=== PATIENT | female | born 1940 | race Caucasian/White ===

== ENCOUNTER 2017-05-14 12:37 | Outpatient (CLI) | payer MEDICARE | END 2017-05-14 12:38 | disposition home or self-care (01) | LOC: BICRAD 12:37 | PROVIDERS: ATTEND Allergy & Immunology | DX: Z03.89 Encounter for observation for other suspected diseases and conditions ruled out (principal) | CPT/HCPCS: 71046 ==

== ENCOUNTER 2017-07-03 13:23 | Outpatient (CLI) | payer MEDICARE | END 2017-07-03 13:24 | disposition home or self-care (01) | LOC: BICMAMMO 13:23 | PROVIDERS: ATTEND Family Medicine | DX: Z13.820 Encounter for screening for osteoporosis (principal); M85.859 Other specified disorders of bone density and structure, unspecified thigh; Z78.0 Asymptomatic menopausal state | CPT/HCPCS: 77080 ==

== ENCOUNTER 2017-08-30 07:23 | Outpatient (CLI) | payer MEDICARE ==
--- NOTE | 2017-08-30 08:59 | CT ---
CT ABDOMEN AND PELVIS: Date: 08/30/17 COMPARISON: None. HISTORY: Left lower quadrant pain. TECHNIQUE: Serial axial CT imaging obtained at 5 mm intervals from lung bases through pubic symphysis without co ntrast. Coronal reformatted imaging obtained. FINDINGS: The lack of contrast media limits assessment of the viscera, bowel vasculature structures, and for ly mphadenopathy. Incomplete segment of stent material overlies the region of the aortic valve. There is prominent mitral annulus calcification. Imaged lung bases are unremarkable. No free intraperitoneal air or fluid. The liver, spleen, pancreas, and adrenal glands are grossly unremarkable. Cholecystectomy clips are p resent. Kidneys are unremarkable. Prominent fat-containing umbilical hernia noted measuring 5.4 cm in greates t dimension. There is extensive diverticulosis involving the descending and sigmoid colon. There is a focal area o f mild pericolonic fat stranding and colonic wall thickening at the junction of the sigmoid colon and the descending colon. There are similar findings involving the distal aspect of the descending colon . Findings are most consistent with diverticulitis. No extraluminal gas or evidence of abscess seen. There is no evidence for bowel obstruction. Appendix is grossly unremarkable. Limited noncontrast enhanced assessment of the vasculature demonstrates significant scattered atheros clerotic calcification of the abdominal aorta and its branches. There is a small hiatal hernia. There is significant multilevel degenerative changes seen within the imaged spine. IMPRESSION: Findings suggesting distal descending colonic and sigmoid colonic diverticulitis. No evidence for abs cess or perforation. Recommend direct visualization of the colon via colonoscopy when the acute sympt oms have resolved. POS: [facility]
== END 2017-08-30 07:24 | disposition home or self-care (01) ==
LOC: SCSCT 07:23
PROVIDERS: ATTEND Family Medicine
DX: R10.32 Left lower quadrant pain (principal)
CPT/HCPCS: 74176; 82565

== ENCOUNTER 2017-12-19 13:38 | Outpatient (CLI) | payer MEDICARE ==
--- NOTE | 2017-12-19 14:46 | MRI ---
MRI LUMBAR SPINE: Date: 12/19/17 Multiplanar, multisequential imaging of lumbar spine obtained without contrast; INDICATION: Low back pain. Lumbar disc degeneration. FINDINGS: Slight wedging of the L1 vertebra. Degenerative osteophytes are seen anteriorly at L1, L2, L3, and L4 . Slight posterolisthesis at L1-2. Degenerative disc changes with loss of disc space at T12-L1, L1-2, and L2-3. At T12-L1, mild disc bulge flattens the thecal sac. Facet hypertrophy. However, no significant centra l canal stenosis. At L1-2, there is a broad based disc bulge/protrusion flattening the thecal sac. Facet and ligamentou s hypertrophy at posterior epidural fat compresses the thecal sac resulting in moderate central canal stenosis. Bilateral foraminal narrowing secondary to diffuse disc and facet hypertrophy. At L2-3, mild diffuse disc bulge. Facet hypertrophy and posterior epidural fat results in mild centra l canal stenosis. Mild bilateral foraminal encroachment. At L3-4, mild disc bulge. Mild to moderate facet hypertrophy. Mild central canal stenosis. At L4-5, mild diffuse disc bulge. Asymmetric bulge/protrusion to the left extending into the left for roxanne. Facet and ligamentous hypertrophy is prominent. There is severe central canal stenosis at this level. Left foraminal encroachment, although the exiting left L4 nerve root does not appear displace d. L5 is transitional. No significant disc bulge or protrusion at L5-S1 and thecal sac is congenitally s mall at this level. Small nerve root sleeve cysts are seen at S1. IMPRESSION: 1. L5 is transitional. 2. Severe central canal stenosis at L4-5 with a broad based bulge and asymmetric protrusion to the l eft at this level. 3. Moderate central canal stenosis at L1-2 as described. Mild central canal stenosis at L2-3 and L3- 4 as described. 4. Mild anterior wedging at the L1 vertebra does not appear acute. There is no evidence of vertebral body edema. 5. There is a cystic lesion to the right at S1 inferior to L5-S1 disc measuring approximately 1.0 cm . Nerve root sleeve cyst is favored; however, I cannot exclude a synovial cyst from the adjacent face t. POS: [facility]
== END 2017-12-19 13:39 | disposition home or self-care (01) ==
LOC: TBSIIMAG 13:38
PROVIDERS: ATTEND Neurological Surgery
DX: M51.36 Other intervertebral disc degeneration, lumbar region (principal); M48.061 Spinal stenosis, lumbar region without neurogenic claudication; M51.26 Other intervertebral disc displacement, lumbar region
CPT/HCPCS: 72148

== ENCOUNTER 2018-04-07 09:55 | Outpatient (CLI) | payer MEDICARE ==
[2018-04-07 12:18] LABS: Hemoglobin 12.4 g/dL (12.0-16.0); Mean Corpuscular HGB CONC 33.9 g/dL (32.0-36.0); Mean Corpuscular Hemoglobin 29.6 pg (27.0-31.0); Mean Corpuscular Volume 87.4 fL (78.0-98.0); Mean Platelet Volume 8.4 fL (7.4-10.4); Platelet Count 208 thou/uL (130-400); RBC Distribution Width 12.2 % (11.5-14.5)
[2018-04-07 12:23] LABS: Anion Gap 14 mmol/L (10-20); BUN (Urea Nitrogen) 34 mg/dL (9.8-20.1); Calc. Creatinine Clearance 0 mL/min (70-130); Calcium 9.9 mg/dL (7.8-10.44); Carbon Dioxide 23 mmol/L (23-31); Chloride 110 mmol/L (98-107); Estimated GFR-MDRD 41; Glucose 93 mg/dL (83-110); Potassium 5.1 mmol/L (3.5-5.1); Sodium 142 mmol/L (136-145)
--- NOTE | 2018-04-07 19:27 | EKG ---
Test Reason : Blood Pressure : / mmHG Vent. Rate : 064 BPM Atrial Rate : 064 BPM P-R Int : 142 ms QRS Dur : 076 ms QT Int : 390 ms P-R-T Axes : 077 020 066 degrees QTc Int : 402 ms Normal sinus rhythm Normal ECG When compared with ECG of 02-MAR-2016 14:16, Confirmed by DR. Peggy PARK MD (4) on 04/07/2018 7:27:21 PM Referred By: REJI Confirmed By:DR. Peggy PARK MD
== END 2018-04-07 09:56 | disposition home or self-care (01) ==
LOC: LABBT 09:55
PROVIDERS: ATTEND Neurological Surgery
DX: Z01.818 Encounter for other preprocedural examination (principal); M51.36 Other intervertebral disc degeneration, lumbar region
CPT/HCPCS: 80048; 85027; 93005; 93010

== ENCOUNTER 2018-04-10 05:43 | Observation (INO) | payer MEDICARE ==
[2018-04-10] MEDS ORDERED: CEFAZOLIN 2 GM/50 ML BAG ONE ×2 (06:09→14:10)
[2018-04-10] MEDS ORDERED: Albuterol Sulfate HFA (OR ONLY) ONE (07:21)
[2018-04-10] MEDS ORDERED: Phenylephrine HCL 10 MG/ML VIAL ONE (07:22)
[2018-04-10] MEDS ORDERED: Fentanyl 100 MCG/2 ML VIAL ONE ×4 (07:28→11:26)
[2018-04-10] MEDS ORDERED: Lidocaine 1% PF 5 ML VIAL ONE (11:26)
[2018-04-10] MEDS ORDERED: Ondansetron PF 4 MG/2 ML Vial ONE ×2 (11:26→12:33)
[2018-04-10] MEDS ORDERED: ePHEDrine/0.9% NaCl/PF SYRINGE 50 mg/10 ml ONE (11:26)
[2018-04-10] MEDS ORDERED: PROPOFOL 200 MG/20 ML VIAL ONE (11:26)
[2018-04-10] MEDS ORDERED: PHENYLEPHRINE-NS 100 MCG/ML 10 ML SYRINGE ONE (11:26)
[2018-04-10] MEDS ORDERED: Glycopyrrolate 0.2 MG/ML 5 ML SYRINGE ONE (11:26)
[2018-04-10] MEDS ORDERED: Dexamethasone 20 MG/5 ML VIAL ONE (11:26)
[2018-04-10] MEDS ORDERED: Mag-Al 1200 mg/1200 mg/30 ML UDCUP PO PRN (15:52)
[2018-04-10] MEDS ORDERED: diphenhydrAMINE 50 MG/ML VIAL IVP PRN (15:52)
[2018-04-10] MEDS ORDERED: HYDROcodone/Acetaminophen 10/325 mg Tablet PO PRN ×2 (15:52)
[2018-04-10] MEDS ORDERED: Morphine 4 MG/ML VIAL SLOW IVP PRN (15:52)
[2018-04-10] MEDS ORDERED: Milk Of Magnesia 30 ML UDCUP PO PRN (15:52)
[2018-04-10] MEDS ORDERED: diphenhydrAMINE 25 MG CAP PO PRN (15:52)
[2018-04-10] MEDS ORDERED: Ondansetron PF 4 MG/2 ML Vial IM PRN (15:52)
[2018-04-10] MEDS ORDERED: Promethazine HCl 12.5 MG SUPP PR PRN (15:52)
[2018-04-10] MEDS ORDERED: Promethazine HCl 25 MG/ML VIAL IM PRN (15:52)
[2018-04-10] MEDS ORDERED: tiZANidine HCl 4 MG TAB PO PRN (15:52)
[2018-04-10] MEDS ORDERED: Promethazine 25 MG TAB PO PRN (15:52)
[2018-04-10 16:08] VITALS: BMI 31.3
[2018-04-10] MEDS: Sodium Chloride 0.9% 1,000 ML IV SCH (16:50)
[2018-04-10] MEDS ORDERED: Gabapentin 100 MG CAP PO PRN (20:26)
[2018-04-10] MEDS ORDERED: Lisinopril/Hydrochlorothiazide 20 mg/12.5 mg Tablet PO SCH (21:00)
[2018-04-10] MEDS ORDERED: Lisinopril 10 MG TAB PO SCH (21:00)
[2018-04-10] MEDS ORDERED: Non-Formulary Item 1 EACH (Budesonide/Formoterol Fumarate [Symbicort 160-4.5 Mcg Inhaler] IN SCH (21:00)
[2018-04-10] MEDS: CEFAZOLIN 2 GM/50 ML BAG IVPB SCH (21:53)
[2018-04-11] MEDS ORDERED: Dextrose 5% in Water 1,000 ML IV PRN (05:05)
[2018-04-11] MEDS ORDERED: HumaLOG 300 UNITS/3 ML VIAL SC PRN (05:05)
[2018-04-11] MEDS ORDERED: Dextrose 50% Abboject 50 ML SYRINGE SLOW IVP PRN (05:05)
[2018-04-11] MEDS ORDERED: Levothyroxine Sodium 50 MCG TAB PO SCH (06:00)
[2018-04-11 06:13] LABS: Anion Gap 10 mmol/L (10-20); BUN (Urea Nitrogen) 30 mg/dL (9.8-20.1); Calc. Creatinine Clearance 52 mL/min (70-130); Calcium 9.1 mg/dL (7.8-10.44); Carbon Dioxide 26 mmol/L (23-31); Chloride 108 mmol/L (98-107); Estimated GFR-MDRD 40; Glucose 127 mg/dL (83-110); Potassium 4.8 mmol/L (3.5-5.1); Sodium 139 mmol/L (136-145)
[2018-04-11 06:14] LABS: Hemoglobin A1c 5.7 % (4.0-6.0)
[2018-04-11] MEDS: CEFAZOLIN 2 GM/50 ML BAG IVPB SCH (06:21)
[2018-04-11] MEDS ORDERED: Mometasone/Formoterol 120 PUFF INHALER INH SCH (06:30)
--- NOTE | 2018-04-11 06:38 | PDOC.EVN ---
Event Note - Event Note Event Note: Full consultation note dictation pending. Briefly, 77 yo F well known to our clinic with h/o HTN, HLD, T2DM, aortic valve replacement, CAD, asthma and polymyalgia rheumatica (in remission per patient) who was admitted after laminectomy. Home medications restarted in addition to mild SSI. Please see dictated consultation for full H&P.
[2018-04-11] MEDS: Sodium Chloride 0.9% 1,000 ML IV SCH (07:20)
[2018-04-11 08:48] VITALS: BP 153/64; TEMP 97.7
--- NOTE | 2018-04-11 08:58 | CON ---
FAMILY MEDICINE CONSULTATION NOTE HISTORY OF PRESENT ILLNESS: Ms. Alva is a very pleasant 77-year-old female, who is well known to our clinic, who presents for laminectomy with Dr. Ruano. She reports that she has been having progressively worsening right foot pain over the course of last year and after seeing Dr. Christian, he recommended she be evaluated by Neurosurgery. She reports that she was found to have a pinched nerve and surgery was performed today. She reports she is feeling very well currently and reports that her pain is well controlled. She, otherwise, is asymptomatic and in her usual state of health. REVIEW OF SYSTEMS: GENERAL: Denies fever or chills. HEAD: Denies headache or trauma. ENT: Denies vision changes, eye pain, or rhinorrhea. CV: Denies chest pain or palpitations. RESPIRATORY: Denies cough or congestion. GI: Endorses nausea. Denies vomiting or diarrhea. : Denies dysuria or hematuria. SKIN: Denies rashes or lesions. EXTREMITIES: Denies swelling or pain. MUSCULOSKELETAL: Endorses mild back pain, which is currently well controlled. PAST MEDICAL HISTORY: 1. Hypertension. 2. Coronary artery disease, status post stent placement. 3. Hypothyroidism. 4. Asthma. 5. Type 2 diabetes mellitus, which the patient reports she has been off medications for years. 6. Polymyalgia rheumatica, currently in remission. 7. CKD. 8. Osteopenia. 9. Obesity. 10. Hyperlipidemia. PAST SURGICAL HISTORY: 1. Right knee meniscus arthroscopy. 2. Bilateral cataract surgery. 3. Trigger finger release in the left hand. 4. Cholecystectomy. 5. Bovine transcatheter valve replacement in 2017. FAMILY HISTORY: Endorses coronary artery disease in dad and 2 brothers. SOCIAL HISTORY: and lives alone at [facility]. She denies any tobacco, alcohol, or drug use. Her daughter, Jessica, is her medical power of title attorney. ALLERGIES: ENDORSES ANAPHYLACTIC ALLERGY TO ASPIRIN AND WAS TOLD SHE IS LIKELY ALSO ALLERGIC TO YELLOW DYE. STATES THAT CODEINE MAKES HER THROW UP AND TRAMADOL TRANSFER INTO A ZOMBIE. MEDICATIONS: 1. Symbicort 160/4.5 mcg per actuation, inhaled 2 puffs twice a day. 2. Lisinopril/hydrochlorothiazide 20/12.5 mg daily. 3. Lisinopril 10 mg daily in addition to lisinopril/hydrochlorothiazide combo. 4. Levothyroxine 50 mcg p.o. q.a.m. 5. Atorvastatin 40 mg p.o. daily. 6. Gabapentin 100 mg p.o. q.8 hours p.r.n. PHYSICAL EXAMINATION: VITAL SIGNS: Blood pressure 171/79, pulse 77, respirations 16, O2 sat 94% on room air, and temperature 97.8. GENERAL: Alert and oriented x3. HEENT: Atraumatic, normocephalic. Moist mucous membranes and trachea midline. CV: Regular rate and rhythm with 4/6 systolic murmur at the left sternal border. ABDOMEN: Soft, nontender, and nondistended. Bowel sounds normoactive. BACK: Bandage in place with no visible drainage over lumbar spine. EXTREMITIES: Pulses 2+ bilateral radial and dorsalis pedis with no peripheral edema. NEURO: No facial droop, equal movements bilaterally. ASSESSMENT AND PLAN: 77-year-old female with a past medical history of hypertension, hyperlipidemia, hypothyroidism, CAD and type 2 diabetes mellitus, who presents status post laminectomy, postoperative day 0. 1. Postoperative day 0: Surgical management and pain control per Dr. Ruano. 2. Hypertension: We will resume home lisinopril and hydrochlorothiazide. 3. Hypothyroidism: We will resume home levothyroxine. 4. Type 2 diabetes mellitus: The patient reports being off medications for many years. We will check A1c and determine Accu-Cheks if indicated after that. 5. Polymyalgia rheumatica: The patient reports being in remission and is not currently on steroids. 6. Hyperlipidemia: Continue atorvastatin. 7. Coronary artery disease: Continue management per Dr. Triplett. We will resume home blood pressure medications. 8. Asthma. The patient reports that she has some lung scarring secondary to having asthma as a kid and continues to be on Symbicort. We will continue home medications. 9. Chronic kidney disease, stage 3, last GFR documented was 24 in August, but not entirely accurate secondary to the patient's age. We will give gentle fluids and monitor with BMP in the morning. We will renally dose medications. 10. Preventive care. The patient reports she got flu shot this year and believes she had Prevnar in the past year. We will plan to administer pneumovax. 11. Code status: Full. 12. Prophylaxis, status post neurosurgery and therefore we will defer any anticoagulation to primary team. Rossana Fried MD, PGY-3 This A/P was discussed with Dr. Alvarez. Attending addendum: Seen and examined and H&P repeated and I agree with A&P as documented. Job ID: [id number] MTDD
[2018-04-11] MEDS ORDERED: Calcium Carbonate 500 MG TAB PO SCH (09:00)
[2018-04-11] MEDS ORDERED: Atorvastatin Calcium 40 MG TAB PO SCH (09:00)
--- NOTE | 2018-04-11 12:12 | PDOC.FM ---
- Subjective Subjective: Patient doing well this AM. s/p laminectomy. She does have some pain with movement of her head, but states it is tolerable. She is more than ready to go home this morning. - Objective MAR Reviewed: Yes Vital Signs & Weight: Vital Signs (12 hours) Temp Pulse Resp BP Pulse Ox 04/11/18 07:45 97.7 F 71 16 153/64 H 98 04/11/18 04:00 98.4 F 63 16 144/70 H 94 L Weight Weight 90.718 kg I&O: 04/10/18 04/11/18 04/12/18 06:59 06:59 06:59 Intake Total 750 1300 Balance 750 1300 Result Diagrams: 04/11/18 05:20 EKG Reviewed by me: No Radiology Reviewed by me: No <Briana Agarwal - Last Filed: 04/11/18 12:18> - Objective Vital Signs & Weight: Vital Signs (12 hours) Temp Pulse Resp BP Pulse Ox 04/11/18 07:45 97.7 F 71 16 153/64 H 98 04/11/18 04:00 98.4 F 63 16 144/70 H 94 L Weight Weight 90.718 kg I&O: 04/10/18 04/11/18 04/12/18 06:59 06:59 06:59 Intake Total 750 1300 Balance 750 1300 Result Diagrams: 04/11/18 05:20 <Wilfredo Sarabia - Last Filed: 04/11/18 15:58> Phys Exam - Physical Examination Constitutional: NAD HEENT: moist MMs Neck: supple Respiratory: no wheezing Cardiovascular: RRR Gastrointestinal: soft, no distention Musculoskeletal: pulses present Neurological: non-focal Psychiatric: normal affect, A&O x 3 Skin: no rash, cap refill <2 seconds <Briana Agarwal - Last Filed: 04/11/18 12:18> Dx/Plan (1) S/P lumbar laminectomy Code(s): Z98.890 - OTHER SPECIFIED POSTPROCEDURAL STATES Status: Acute (2) DM type 2 (diabetes mellitus, type 2) Status: Chronic (3) CKD stage 3 secondary to diabetes Code(s): E11.22 - TYPE 2 DIABETES MELLITUS W DIABETIC CHRONIC KIDNEY DISEASE; N18.3 - CHRONIC KIDNEY DISEASE, STAGE 3 (MODERATE) Status: Chronic (4) HLD (hyperlipidemia) Code(s): E78.5 - HYPERLIPIDEMIA, UNSPECIFIED Status: Chronic (5) HTN (hypertension) Code(s): I10 - ESSENTIAL (PRIMARY) HYPERTENSION Status: Chronic (6) CAD (coronary artery disease) Code(s): I25.10 - ATHSCL HEART DISEASE OF [place] CORONARY ARTERY W/O ANG PCTRS Status: Chronic (7) Hypothyroid Code(s): E03.9 - HYPOTHYROIDISM, UNSPECIFIED Status: Chronic (8) Polymyalgia rheumatica Code(s): M35.3 - POLYMYALGIA RHEUMATICA Status: Resolved - Plan Plan: 77 yo F well known to our clinic with h/o HTN, HLD, T2DM, aortic valve replacement, CAD, asthma and polymyalgia rheumatica (in remission per patient) who was admitted after laminectomy. s/p laminectomy - Managed by neurosurgery DM type II - Restart home medications - Mild SSI HTN - Restart home medications CKD stage III - GFR 40 during this hospitalization - Cr at baseline based on past visits Hypothyroidism - Continue home meds Polymyalgia rheumatica - In remission, not on steroids Dispo: Stable. Patient cleared for d/c home today per neurosurgery. We appreciate the consult. <Briana Agarwal - Last Filed: 04/11/18 12:18> Attending Addendum - Attending Addendum Date/Time: 04/11/18 [id number] I personally evaluated the patient and discussed the management with Dr. Agarwal. I agree with the History, Examination, Assessment and Plan documented above with any addition or exceptions noted below. <Wilfredo Sarabia - Last Filed: 04/11/18 15:58>
--- NOTE | 2018-04-12 05:22 | DIS ---
DATE OF ADMISSION: 04/10/2018 DATE OF DISCHARGE: 04/11/2018 HOSPITAL COURSE: The patient is a 77-year-old female, who is status post L4-L5 laminectomy for low back pain and neurogenic claudication. Following the surgery, she was transitioned to [facility] floor, where her pain was well controlled with p.o. medications, she was tolerating regular diet, and voiding appropriately. She was then up ambulating throughout the department without difficulty. She is sitting in the bed comfortably this morning, in no acute distress. Her active range of motion of all extremities, 5/5 strength. No focal motor weakness or reflex asymmetry. Dressing is dry. We will plan to dismiss the patient to home. I have discussed home care and precautions. I will arrange home health nursing to assist with dressing changes and also arrange physical therapy. I provided the patient with scripts for hydrocodone, tizanidine, Zofran for p.r.n. nausea. Please reach us Neurosurgery for additional questions or concerns. Job ID: [id number]
--- NOTE | 2018-04-14 13:10 | OP ---
DATE OF PROCEDURE: 04/10/2018 BOW STAPLER: [place]. PROCEDURE PERFORMED: L4-L5 laminectomy. DESCRIPTION OF PROCEDURE: The patient was brought to the operating room, intubated. She was rolled in the prone position incision was made exposing L4 and L5 and the level was confirmed by x-ray. Moved forward with a complete L4-L5 laminectomy and a complete decompression was achieved. A small pinhole in the central dura at the L4-L5 level was closed in watertight fashion with Prolene suture. The wound was then extensively irrigated and hemostasis was secured. Vancomycin power was applied and the wound was then closed in anatomic layers. Job ID: [id number]
== END 2018-04-11 11:42 | disposition home or self-care (01) ==
LOC: SDC 05:43 → SURG B 07:10
PROVIDERS: ADMIT Neurological Surgery; ATTEND Neurological Surgery
PROC: 00NY0ZZ Release Lumbar Spinal Cord, Open Approach (ICD-10-PCS; principal; 2018-04-10)
DX: M48.062 Spinal stenosis, lumbar region with neurogenic claudication (principal); M54.16 Radiculopathy, lumbar region; E78.5 Hyperlipidemia, unspecified; J45.909 Unspecified asthma, uncomplicated; M35.3 Polymyalgia rheumatica; I25.10 Atherosclerotic heart disease of native coronary artery without angina pectoris; E03.9 Hypothyroidism, unspecified; I12.9 Hypertensive chronic kidney disease with stage 1 through stage 4 chronic kidney disease, or unspecified chronic kidney disease; E11.22 Type 2 diabetes mellitus with diabetic chronic kidney disease; N18.3 Chronic kidney disease, stage 3 (moderate); M85.80 Other specified disorders of bone density and structure, unspecified site; E66.9 Obesity, unspecified; Z68.31 Body mass index [BMI] 31.0-31.9, adult; Z79.51 Long term (current) use of inhaled steroids; Z79.899 Other long term (current) drug therapy; Z88.5 Allergy status to narcotic agent; Z88.8 Allergy status to other drugs, medicaments and biological substances; Z91.048 Other nonmedicinal substance allergy status; Z95.3 Presence of xenogenic heart valve; Z95.5 Presence of coronary angioplasty implant and graft
CPT/HCPCS: 63005; 76001; 80048; 82962; 83036; 96372; 96374; 96375; 96376 ×3; 97116; 97139; G0378; G8978; G8979; 36415; 36416; J0131; J1100; J1200; J2001; J2370; J2405; J2704; J3010; J3370

== ENCOUNTER 2020-09-22 13:47 | Outpatient (CLI) | payer MEDICARE ==
[2020-09-22 16:08] LABS: Anion Gap 16 mmol/L (10-20); BUN (Urea Nitrogen) 31 mg/dL (9.8-20.1); Calc. Creatinine Clearance 0 mL/min (70-130); Calcium 9.1 mg/dL (7.8-10.44); Carbon Dioxide 23 mmol/L (23-31); Chloride 102 mmol/L (98-107); Glucose 120 mg/dL (83-110); Potassium 5.1 mmol/L (3.5-5.1); Sodium 136 mmol/L (136-145)
[2020-09-22 16:17] LABS: Prothrombin Time 11.2 sec (9.5-12.1)
[2020-09-22 16:41] LABS: #Eosinphils 0.3 10x3/uL (0.0-0.5); #Monocytes 0.6 10x3/uL (0.0-1.1); #Neutrophils 5.8 10x3/uL (1.5-8.4); %Basophils 0.2 % (0.0-2.0); %Eosinophils 2.5 % (0.0-6.0); %Lymphocytes 36.7 % (18.0-47.0); %Neutrophils 54.1 % (40.0-75.0); Hemoglobin 11.2 g/dL (12.0-15.5); Mean Corpuscular HGB CONC 31.1 g/dL (32.0-36.0); Mean Corpuscular Hemoglobin 27.5 pg (27.0-33.0); Mean Corpuscular Volume 88.5 fl (81.6-98.3); Mean Platelet Volume 10.2 fl (7.4-10.4); Platelet Count 266 10x3/uL (150-450); Red Blood Cell (RBC) Count 4.07 10x6/uL (3.90-5.03); White Blood Cell (WBC) Count 10.7 10x3/uL (3.5-10.5)
[2020-09-23 01:47] LABS: SARS-CoV-2 PCR by NAA Not Detected (NotDetected)
== END 2020-09-22 13:48 | disposition home or self-care (01) ==
LOC: LABBT 13:47
PROVIDERS: ATTEND Orthopaedic Surgery
DX: Z01.818 Encounter for other preprocedural examination (principal); Z20.822 Contact with and (suspected) exposure to COVID-19; M17.11 Unilateral primary osteoarthritis, right knee
CPT/HCPCS: 80048; 85025; 85610; 87081; 93005; U0003; U0005; 87635; 93010

== ENCOUNTER 2020-09-22 14:00 | Inpatient (IN) | payer MEDICARE ==
[2020-09-26 10:37] VITALS: BMI 33.0
[2020-09-27] MEDS ORDERED: Tranexamic Acid 1,000 MG/10 ML VIAL ONE (05:57)
[2020-09-27] MEDS ORDERED: Sodium Chloride 0.9% 100 ML ONE (05:57)
[2020-09-27] MEDS ORDERED: Fentanyl 100 MCG/2 ML VIAL ONE ×4 (06:02→09:41)
[2020-09-27] MEDS ORDERED: Hydrocortisone Sod Succ/PF 100 mg/2 ml Vial ONE (06:14)
[2020-09-27] MEDS ORDERED: Midazolam HCl 2 mg/2 ml Vial ONE (06:29)
[2020-09-27] MEDS ORDERED: Lidocaine 1% (PF) 30 ML VIAL ONE (06:29)
[2020-09-27] MEDS ORDERED: Vancomycin 1.5 GRAM/300 ML BAG 1.5 GM in Premix Bag 1 BAG IVPB SCH (06:30)
[2020-09-27] MEDS ORDERED: Gabapentin 100 MG CAP PO PRN (06:52)
[2020-09-27] MEDS ORDERED: Zolpidem Tartrate 5 MG TAB PO PRN ×2 (06:52→08:00)
[2020-09-27] MEDS ORDERED: Promethazine HCl 25 MG/ML VIAL IM PRN ×3 (06:52→08:13)
[2020-09-27] MEDS ORDERED: diphenhydrAMINE 25 MG CAP PO PRN (06:52)
[2020-09-27] MEDS ORDERED: Fentanyl 100 MCG/2 ML VIAL SLOW IVP PRN (06:52)
[2020-09-27] MEDS ORDERED: HYDROcodone/Acetaminophen 10/325 mg Tablet PO PRN (06:52)
[2020-09-27] MEDS ORDERED: Acetaminophen 325 MG TAB PO PRN (06:52)
[2020-09-27] MEDS ORDERED: Ondansetron PF 4 MG/2 ML Vial IVP PRN (06:52)
[2020-09-27] MEDS ORDERED: PROPOFOL 200 MG/20 ML VIAL ONE (07:26)
[2020-09-27] MEDS ORDERED: Dexamethasone 20 MG/5 ML VIAL ONE (07:26)
[2020-09-27] MEDS ORDERED: PHENYLEPHRINE-NS 100 MCG/ML 10 ML SYRINGE ONE (07:26)
[2020-09-27] MEDS ORDERED: Ondansetron PF 4 MG/2 ML Vial ONE ×2 (07:26→11:06)
[2020-09-27] MEDS ORDERED: ePHEDrine Sulfate 50 MG/10 ML VIAL ONE (07:26)
[2020-09-27] MEDS ORDERED: Ropivacaine 2% HCl/PF (20 MG/10 ML VIAL) ONE (07:26)
[2020-09-27] MEDS ORDERED: Bupivacaine HCl 0.5%/Epinephrine 1:200,000/PF 30 ml Vial ONE (07:26)
[2020-09-27] MEDS ORDERED: Fentanyl 100 MCG/2 ML VIAL IV PRN (07:49)
[2020-09-27] MEDS ORDERED: Ropivacaine HCl/PF 250 ML in Premix Bag 1 BAG NERVE BLCK SCH (08:00)
[2020-09-27] MEDS ORDERED: traMADol HCl 50 MG TAB PO PRN ×2 (08:00)
[2020-09-27] MEDS ORDERED: Promethazine HCl 25 MG/ML VIAL SLOW IVP PRN (08:13)
[2020-09-27] MEDS ORDERED: Ondansetron HCl/PF 4 MG/2 ML Vial IVP PRN (08:13)
[2020-09-27] MEDS ORDERED: Aspirin 81 mg Enteric Coated Tablet PO SCH (09:00)
[2020-09-27] MEDS ORDERED: HYDROmorphone 0.5 MG/0.5 ML SYRINGE ONE (09:50)
[2020-09-27] MEDS ORDERED: Ketorolac Tromethamine 30 MG/ML VIAL IVP SCH (12:00)
[2020-09-27] MEDS: Multivitamin W/ Minerals 1 TAB PO SCH (14:50)
[2020-09-27] MEDS: Cholecalciferol 1,000 UNITS (25 MCG) TAB PO SCH (14:50)
[2020-09-27] MEDS: Sodium Chloride 0.9% 1,000 ML IV SCH ×2 (14:50→16:29)
[2020-09-27] MEDS: Senokot S 8.6-50 MG TAB PO SCH ×2 (14:50→21:00)
[2020-09-27] MEDS: Atorvastatin Calcium 40 MG TAB PO SCH (14:50)
[2020-09-27] MEDS: CEFAZOLIN 2 GM in Premix Bag 1 BAG IVPB SCH ×2 (14:59→21:00)
[2020-09-27] MEDS: Ondansetron PF 4 MG/2 ML Vial IVP PRN (15:03)
[2020-09-27] MEDS: Mometasone 200 MCG/Formoterol 5 MCG 120 PUFF INHALER INH SCH (17:09)
[2020-09-27 17:46] LABS: Hemoglobin A1c 6.6 % (4.0-6.0)
[2020-09-27 17:48] LABS: ALT (SGPT) 15 U/L (8-55); AST (SGOT) 20 U/L (5-34); Albumin 3.5 g/dL (3.4-4.8); Alkaline Phosphatase 83 U/L (40-110); Anion Gap 16 mmol/L (10-20); BUN (Urea Nitrogen) 23 mg/dL (9.8-20.1); Bilirubin, Total 0.3 mg/dL (0.2-1.2); Calc. Creatinine Clearance 52 mL/min (70-130); Calcium 8.7 mg/dL (7.8-10.44); Carbon Dioxide 18 mmol/L (23-31); Chloride 103 mmol/L (98-107); Glucose 178 mg/dL (83-110); Potassium 4.5 mmol/L (3.5-5.1); Protein, Total 6.5 g/dL (5.8-8.1); Sodium 132 mmol/L (136-145)
[2020-09-27] MEDS: Lisinopril 10 MG TAB PO SCH (21:00)
[2020-09-27] MEDS: HYDROcodone/Acetaminophen 10/325 mg Tablet PO PRN (22:10)
[2020-09-28] MEDS: Sodium Chloride 0.9% 1,000 ML IV SCH (04:46)
[2020-09-28] MEDS: Levothyroxine Sodium 50 MCG TAB PO SCH (05:35)
[2020-09-28 05:39] LABS: Hemoglobin 9.5 g/dL (12.0-16.0); Mean Corpuscular HGB CONC 32.4 g/dL (32.0-36.0); Mean Corpuscular Hemoglobin 28.1 pg (27.0-31.0); Mean Corpuscular Volume 86.7 fL (78.0-98.0); Mean Platelet Volume 7.6 fL (7.4-10.4); Platelet Count 202 thou/uL (130-400); Red Blood Cell (RBC) Count 3.39 mill/uL (4.20-5.40); White Blood Cell (WBC) Count 11.6 thou/uL (4.8-10.8)
[2020-09-28] MEDS: Mometasone 200 MCG/Formoterol 5 MCG 120 PUFF INHALER INH SCH ×2 (08:15→18:02)
[2020-09-28] MEDS: HYDROcodone/Acetaminophen 10/325 mg Tablet PO PRN ×5 (08:44→22:52)
[2020-09-28] MEDS: Atorvastatin Calcium 40 MG TAB PO SCH (08:47)
[2020-09-28] MEDS: Cholecalciferol 1,000 UNITS (25 MCG) TAB PO SCH (08:47)
[2020-09-28] MEDS: Senokot S 8.6-50 MG TAB PO SCH ×2 (08:47→20:38)
[2020-09-28] MEDS: Ferrous Gluconate 324 MG TAB PO SCH ×2 (08:47→20:39)
[2020-09-28] MEDS: Multivitamin W/ Minerals 1 TAB PO SCH (08:48)
[2020-09-28] MEDS: Ondansetron PF 4 MG/2 ML Vial IVP PRN (11:28)
[2020-09-28] MEDS: Lisinopril 10 MG TAB PO SCH (20:39)
[2020-09-29] MEDS: Levothyroxine Sodium 50 MCG TAB PO SCH (05:33)
[2020-09-29 06:55] LABS: Hemoglobin 9.4 g/dL (12.0-16.0); Mean Corpuscular HGB CONC 33.9 g/dL (32.0-36.0); Mean Corpuscular Hemoglobin 29.6 pg (27.0-31.0); Mean Corpuscular Volume 87.3 fL (78.0-98.0); Mean Platelet Volume 7.6 fL (7.4-10.4); Platelet Count 189 thou/uL (130-400); RBC Distribution Width 12.4 % (11.5-14.5); Red Blood Cell (RBC) Count 3.16 mill/uL (4.20-5.40); White Blood Cell (WBC) Count 10.1 thou/uL (4.8-10.8)
[2020-09-29] MEDS ORDERED: Promethazine 25 MG TAB PO PRN (07:37)
[2020-09-29] MEDS: Multivitamin W/ Minerals 1 TAB PO SCH (08:44)
[2020-09-29] MEDS: Cholecalciferol 1,000 UNITS (25 MCG) TAB PO SCH (08:44)
[2020-09-29] MEDS: Senokot S 8.6-50 MG TAB PO SCH (08:45)
[2020-09-29] MEDS: Atorvastatin Calcium 40 MG TAB PO SCH (08:45)
[2020-09-29] MEDS: Ferrous Gluconate 324 MG TAB PO SCH (08:45)
[2020-09-29] MEDS: HYDROcodone/Acetaminophen 10/325 mg Tablet PO PRN ×2 (08:51→13:15)
[2020-09-29] MEDS ORDERED: Apixaban 2.5 MG TAB PO SCH (09:00)
[2020-09-29] MEDS ORDERED: Enoxaparin Sodium 40 MG/0.4 ML SYRINGE SC SCH (09:00)
[2020-09-29] MEDS: Mometasone 200 MCG/Formoterol 5 MCG 120 PUFF INHALER INH SCH (09:37)
[2020-09-29 12:16] VITALS: BP 101/72; TEMP 98.2
== END 2020-09-29 13:19 | disposition home health service (06) | DRG 470 ==
LOC: EDSTATUS 14:00 → SJJU 09-27 05:28 → SURG A 09-27 14:15
PROVIDERS: ADMIT Orthopaedic Surgery; ATTEND Orthopaedic Surgery
PROC: 0SRC0J9 Replacement of Right Knee Joint with Synthetic Substitute, Cemented, Open Approach (ICD-10-PCS; principal; 2020-09-27)
DX: M17.11 Unilateral primary osteoarthritis, right knee (principal); I25.110 Atherosclerotic heart disease of native coronary artery with unstable angina pectoris; Z20.822 Contact with and (suspected) exposure to COVID-19; E78.5 Hyperlipidemia, unspecified; M35.3 Polymyalgia rheumatica; I12.9 Hypertensive chronic kidney disease with stage 1 through stage 4 chronic kidney disease, or unspecified chronic kidney disease; E11.22 Type 2 diabetes mellitus with diabetic chronic kidney disease; N18.30 Chronic kidney disease, stage 3 unspecified; E03.9 Hypothyroidism, unspecified; Z88.5 Allergy status to narcotic agent; Z88.6 Allergy status to analgesic agent; Z88.8 Allergy status to other drugs, medicaments and biological substances; Z95.2 Presence of prosthetic heart valve; Z79.51 Long term (current) use of inhaled steroids; Z79.890 Hormone replacement therapy; Z79.899 Other long term (current) drug therapy
CPT/HCPCS: 36415; 36416; 80053; 83036; 85027; 94664; C1713; C1776; J0690; J1100; J1170; J1650; J1720; J2001; J2250; J2405; J2550; J2704; J2795; J3010; J3490

== ENCOUNTER 2021-05-04 03:55 | Inpatient (IN) | payer MEDICARE ==
[2021-05-04] MEDS ORDERED: Morphine 4 MG/ML VIAL ONE ×2 (04:56→07:47)
[2021-05-04 05:00] LABS: #Eosinphils 0.2 thou/uL (0.0-0.7); #Lymphocytes 2.5 thou/uL (1.20-3.40); #Monocytes 0.8 thou/uL (0.11-0.59); #Neutrophils 6.9 thou/uL (1.40-6.50); %Basophils 0.3 % (0.0-1.0); %Eosinophils 2.2 % (0.0-10.0); %Lymphocytes 23.7 % (21.0-51.0); %Monocytes 7.2 % (0.0-10.0); %Neutrophils 66.6 % (42.0-75.0); Hemoglobin 10.5 g/dL (12.0-16.0); Mean Corpuscular HGB CONC 34.8 g/dL (32.0-36.0); Mean Corpuscular Hemoglobin 29.3 pg (27.0-31.0); Mean Corpuscular Volume 84.2 fL (78.0-98.0); Mean Platelet Volume 6.5 fL (7.4-10.4); Platelet Count 237 thou/uL (130-400); Red Blood Cell (RBC) Count 3.58 mill/uL (4.20-5.40); White Blood Cell (WBC) Count 10.4 thou/uL (4.8-10.8)
[2021-05-04 05:19] LABS: ALT (SGPT) 8 U/L (8-55); AST (SGOT) 12 U/L (5-34); Albumin 3.4 g/dL (3.4-4.8); Alkaline Phosphatase 83 U/L (40-110); Anion Gap 13 mmol/L (10-20); BUN (Urea Nitrogen) 27 mg/dL (9.8-20.1); Bilirubin, Total 0.5 mg/dL (0.2-1.2); Calc. Creatinine Clearance 0 mL/min (70-130); Calcium 8.8 mg/dL (7.8-10.44); Carbon Dioxide 22 mmol/L (23-31); Chloride 92 mmol/L (98-107); Globulin 3.3 g/dL (2.4-3.5); Glucose 120 mg/dL (83-110); Lipase 33 U/L (8-78); Potassium 3.8 mmol/L (3.5-5.1); Protein, Total 6.7 g/dL (5.8-8.1); Sodium 123 mmol/L (136-145)
[2021-05-04 06:44] LABS: Bacteria/HPF None Seen HPF (None Seen); Bilirubin Negative (Negative); Blood, Urine Trace (Negative); Clarity Clear (Clear); Glucose, Urine (Dipstick) Normal (Negative); Ketone, Urine Negative (Negative); Leukocyte Negative Leu/uL (Negative); Nitrite Negative (Negative); Protein, Urine (Dipstick) Negative (Neg-Trace); RBC/HPF 0-3 HPF (0-3); Specific Gravity, Urine 1.011 (1.002-1.036); Squamous Epithelial None Seen HPF (0-3); Urobilinogen Normal mg/dL (Less than 2); WBC/HPF 0-3 HPF (0-3); pH, Urine 5.5 (5.0-9.0)
[2021-05-04] MEDS ORDERED: Piperacillin/Tazobactam 3.375 GM VIAL ONE (07:01)
[2021-05-04 09:20] LABS: SARS-CoV-2 NAA Rapid Test Not Detected (NotDetected)
[2021-05-04] MEDS ORDERED: Famotidine/PF 20 mg/2ml Vial ONE (11:10)
[2021-05-04] MEDS ORDERED: XYLOCAINE 2%-EPI 1:100,000 20 ML VIAL ONE (11:11)
[2021-05-04] MEDS ORDERED: Bupivacaine 0.25% 10 ML VIAL ONE (11:11)
[2021-05-04] MEDS ORDERED: Sodium Chloride 0.9% 10 ML ONE (11:22)
[2021-05-04] MEDS ORDERED: HYDROmorphone 2 MG/ML VIAL ONE (11:22)
[2021-05-04] MEDS ORDERED: Fentanyl 100 MCG/2 ML VIAL ONE ×3 (11:22→14:24)
[2021-05-04] MEDS ORDERED: SUGAMMADEX SODIUM 200 MG/2 ML VIAL ONE (11:23)
[2021-05-04] MEDS ORDERED: Metoclopramide HCl 10 MG/2 ML VIAL ONE (11:30)
[2021-05-04] MEDS ORDERED: ePHEDrine 50 MG/ML VIAL ONE (11:30)
[2021-05-04] MEDS ORDERED: Lidocaine 1% PF 5 ML VIAL ONE (11:30)
[2021-05-04] MEDS ORDERED: PROPOFOL 200 MG/20 ML VIAL ONE (11:30)
[2021-05-04] MEDS ORDERED: Rocuronium Bromide 10 MG/ML (10ML VIAL) ONE ×2 (11:30)
[2021-05-04] MEDS ORDERED: Succinylcholine 200 MG/10 ml SYRINGE FS ONE (11:30)
[2021-05-04] MEDS ORDERED: PHENYLEPHRINE-NS 100 MCG/ML 10 ML SYRINGE ONE (11:30)
[2021-05-04] MEDS ORDERED: Ondansetron PF 4 MG/2 ML Vial ONE (11:30)
[2021-05-04] MEDS ORDERED: Promethazine HCl 25 MG/ML VIAL IVPB PRN ×2 (11:59→13:07)
[2021-05-04] MEDS ORDERED: Meperidine HCl/PF 25 MG/ML VIAL SLOW IVP PRN (11:59)
[2021-05-04] MEDS ORDERED: Promethazine HCl 25 MG/ML VIAL IM PRN ×4 (11:59→17:34)
[2021-05-04] MEDS ORDERED: HYDROmorphone 2 MG/ML VIAL SLOW IVP PRN (11:59)
[2021-05-04] MEDS ORDERED: Ondansetron HCl/PF 4 MG/2 ML Vial IVP PRN ×2 (11:59→13:07)
[2021-05-04] MEDS ORDERED: HYDROmorphone 0.5 MG/0.5 ML SYRINGE ONE (14:42)
[2021-05-04] MEDS ORDERED: D5 1/2 NS w/20 mEq KCL 1,000 ML IV SCH (16:19)
[2021-05-04] MEDS ORDERED: Dextrose 5% in Water 1,000 ML IV PRN ×2 (16:19→17:34)
[2021-05-04] MEDS ORDERED: Acetaminophen 325 MG TAB PO PRN (16:19)
[2021-05-04] MEDS ORDERED: Morphine 4 MG/ML VIAL SLOW IVP PRN ×2 (16:19→17:34)
[2021-05-04] MEDS ORDERED: HYDROcodone/Acetaminophen 7.5/325 mg Tablet PO PRN (16:19)
[2021-05-04] MEDS ORDERED: Ondansetron PF 4 MG/2 ML Vial IVP PRN (16:19)
[2021-05-04] MEDS ORDERED: hydrALAZINE 20 MG/ML VIAL SLOW IVP PRN ×2 (16:19→17:34)
[2021-05-04] MEDS ORDERED: Dextrose 50% Abboject 50 ML SYRINGE SLOW IVP PRN ×2 (16:19→17:34)
[2021-05-04] MEDS ORDERED: Piperacillin/Tazobactam 3.375 GM in Sodium Chloride 0.9% 100 ML IVPB SCH ×3 (18:00)
[2021-05-04 19:56] VITALS: BMI 29.0
[2021-05-04] MEDS ORDERED: Famotidine 20 MG TAB PO SCH (21:00)
[2021-05-04] MEDS ORDERED: Famotidine/PF 20 mg/2ml Vial SLOW IVP SCH (21:00)
[2021-05-04] MEDS: Famotidine/PF 20 mg/2ml Vial SLOW IVP SCH (21:07)
[2021-05-04] MEDS: Famotidine 20 MG TAB PO SCH (21:10)
[2021-05-04] MEDS: D5 1/2 NS w/20 mEq KCL 1,000 ML IV SCH (21:10)
[2021-05-04] MEDS: Piperacillin/Tazobactam 3.375 GM in Sodium Chloride 0.9% 100 ML IVPB SCH (21:10)
[2021-05-05] MEDS: Piperacillin/Tazobactam 3.375 GM in Sodium Chloride 0.9% 100 ML IVPB SCH (05:39)
[2021-05-05] MEDS ORDERED: D5 1/2 NS w/20 mEq KCL 1,000 ML IV SCH (08:10)
[2021-05-05] MEDS: Enoxaparin Sodium 40 MG/0.4 ML SYRINGE SC SCH (08:58)
[2021-05-05] MEDS ORDERED: Enoxaparin Sodium 40 MG/0.4 ML SYRINGE SC SCH (09:00)
[2021-05-05] MEDS: Acetaminophen 325 MG TAB PO PRN ×2 (09:10→16:31)
[2021-05-05] MEDS: D5 1/2 NS w/20 mEq KCL 1,000 ML IV SCH (15:48)
[2021-05-05] MEDS: Famotidine/PF 20 mg/2ml Vial SLOW IVP SCH (20:13)
[2021-05-05] MEDS: Famotidine 20 MG TAB PO SCH (23:43)
[2021-05-06] MEDS: HYDROcodone/Acetaminophen 7.5/325 mg Tablet PO PRN (00:21)
[2021-05-06] MEDS: Ondansetron PF 4 MG/2 ML Vial IVP PRN ×2 (03:36→16:50)
[2021-05-06 06:28] LABS: Band 10 % (5-11); Hemoglobin 12.4 g/dL (12.0-16.0); Lymphocytes 8 % (21-51); MDiff Complete? YES; Mean Corpuscular HGB CONC 33.8 g/dL (32.0-36.0); Mean Corpuscular Hemoglobin 28.6 pg (27.0-31.0); Mean Corpuscular Volume 84.6 fL (78.0-98.0); Mean Platelet Volume 6.9 fL (7.4-10.4); Monocytes 2 % (0-10); Neutrophil 80 % (42-75); Platelet Count 388 thou/uL (130-400); Platelet Morphology Comment Appears Adequate; RBC Distribution Width 12.1 % (11.5-14.5); RBC Morphology Normal; Red Blood Cell (RBC) Count 4.34 mill/uL (4.20-5.40); White Blood Cell (WBC) Count 22.4 thou/uL (4.8-10.8)
[2021-05-06 06:35] LABS: Anion Gap 15 mmol/L (10-20); BUN (Urea Nitrogen) 21 mg/dL (9.8-20.1); Calc. Creatinine Clearance 38 mL/min (70-130); Calcium 9.4 mg/dL (7.8-10.44); Carbon Dioxide 22 mmol/L (23-31); Chloride 93 mmol/L (98-107); Glucose 183 mg/dL (83-110); Potassium 5.1 mmol/L (3.5-5.1); Sodium 125 mmol/L (136-145)
[2021-05-06] MEDS: Enoxaparin Sodium 40 MG/0.4 ML SYRINGE SC SCH (08:21)
[2021-05-06] MEDS: Famotidine/PF 20 mg/2ml Vial SLOW IVP SCH (21:01)
[2021-05-06] MEDS: Famotidine 20 MG TAB PO SCH (22:16)
[2021-05-07] MEDS: HYDROcodone/Acetaminophen 7.5/325 mg Tablet PO PRN (05:37)
[2021-05-07] MEDS: Enoxaparin Sodium 40 MG/0.4 ML SYRINGE SC SCH (09:19)
[2021-05-07] MEDS ORDERED: Sodium Chloride 0.9% 1,000 ML IV SCH (09:45)
[2021-05-07] MEDS: Sodium Chloride 0.9% 1,000 ML IV SCH ×3 (12:37→23:43)
[2021-05-07] MEDS: Acetaminophen 325 MG TAB PO PRN ×2 (16:54→23:39)
[2021-05-07] MEDS: Famotidine/PF 20 mg/2ml Vial SLOW IVP SCH (20:42)
[2021-05-08 05:40] LABS: #Eosinphils 0.3 thou/uL (0.0-0.7); #Lymphocytes 1.7 thou/uL (1.20-3.40); #Monocytes 0.9 thou/uL (0.11-0.59); #Neutrophils 9.9 thou/uL (1.40-6.50); %Basophils 0.1 % (0.0-1.0); %Eosinophils 2.2 % (0.0-10.0); %Lymphocytes 13.1 % (21.0-51.0); %Monocytes 6.7 % (0.0-10.0); %Neutrophils 77.8 % (42.0-75.0); Hemoglobin 10.2 g/dL (12.0-16.0); Mean Corpuscular HGB CONC 33.9 g/dL (32.0-36.0); Mean Corpuscular Hemoglobin 28.4 pg (27.0-31.0); Mean Corpuscular Volume 83.9 fL (78.0-98.0); Mean Platelet Volume 6.7 fL (7.4-10.4); Platelet Count 320 thou/uL (130-400); RBC Distribution Width 12.1 % (11.5-14.5); Red Blood Cell (RBC) Count 3.59 mill/uL (4.20-5.40); White Blood Cell (WBC) Count 12.7 thou/uL (4.8-10.8)
[2021-05-08 06:06] LABS: ALT (SGPT) 8 U/L (8-55); AST (SGOT) 14 U/L (5-34); Albumin 2.7 g/dL (3.4-4.8); Alkaline Phosphatase 71 U/L (40-110); Anion Gap 12 mmol/L (10-20); BUN (Urea Nitrogen) 26 mg/dL (9.8-20.1); Bilirubin, Total 0.5 mg/dL (0.2-1.2); Calc. Creatinine Clearance 47 mL/min (70-130); Calcium 8.4 mg/dL (7.8-10.44); Carbon Dioxide 22 mmol/L (23-31); Chloride 99 mmol/L (98-107); Glucose 82 mg/dL (83-110); Magnesium 1.6 mg/dL (1.6-2.6); Potassium 4.7 mmol/L (3.5-5.1); Protein, Total 5.7 g/dL (5.8-8.1); Sodium 128 mmol/L (136-145)
[2021-05-08] MEDS: Sodium Chloride 0.9% 1,000 ML IV SCH ×3 (07:14→20:55)
[2021-05-08] MEDS ORDERED: Acetaminophen 500 MG TAB PO PRN (08:19)
[2021-05-08] MEDS ORDERED: Acetaminophen 500 MG TAB PO SCH (08:30)
[2021-05-08] MEDS ORDERED: Levothyroxine Sodium 50 MCG TAB PO SCH (08:45)
[2021-05-08] MEDS: Polyethylene Glycol 3350 17 GM Packet PO SCH (09:24)
[2021-05-08] MEDS: Enoxaparin Sodium 40 MG/0.4 ML SYRINGE SC SCH (09:24)
[2021-05-08] MEDS ORDERED: Simethicone Chewable 80 MG TAB PO PRN (14:58)
[2021-05-08] MEDS ORDERED: Calcium Carbonate 500 MG ChewTAB PO PRN (14:58)
[2021-05-08] MEDS ORDERED: Famotidine/PF 20 mg/2ml Vial SLOW IVP SCH (15:00)
[2021-05-08] MEDS: Famotidine/PF 20 mg/2ml Vial SLOW IVP SCH (20:54)
[2021-05-09] MEDS: Sodium Chloride 0.9% 1,000 ML IV SCH ×2 (01:23→08:32)
[2021-05-09] MEDS ORDERED: Levothyroxine Sodium 50 MCG TAB PO SCH (06:00)
[2021-05-09 06:25] LABS: #Eosinphils 0.1 thou/uL (0.0-0.7); #Lymphocytes 1.4 thou/uL (1.20-3.40); #Monocytes 0.8 thou/uL (0.11-0.59); #Neutrophils 6.8 thou/uL (1.40-6.50); %Basophils 0.3 % (0.0-1.0); %Eosinophils 1.4 % (0.0-10.0); %Lymphocytes 15.4 % (21.0-51.0); %Monocytes 9.1 % (0.0-10.0); %Neutrophils 73.8 % (42.0-75.0); Hemoglobin 9.9 g/dL (12.0-16.0); Mean Corpuscular HGB CONC 32.8 g/dL (32.0-36.0); Mean Corpuscular Hemoglobin 27.8 pg (27.0-31.0); Mean Corpuscular Volume 84.5 fL (78.0-98.0); Mean Platelet Volume 6.8 fL (7.4-10.4); Platelet Count 312 thou/uL (130-400); RBC Distribution Width 12.1 % (11.5-14.5); Red Blood Cell (RBC) Count 3.58 mill/uL (4.20-5.40); White Blood Cell (WBC) Count 9.2 thou/uL (4.8-10.8)
[2021-05-09 06:45] LABS: Anion Gap 12 mmol/L (10-20); BUN (Urea Nitrogen) 20 mg/dL (9.8-20.1); Calc. Creatinine Clearance 65 mL/min (70-130); Carbon Dioxide 20 mmol/L (23-31); Chloride 102 mmol/L (98-107); Glucose 81 mg/dL (83-110); Potassium 4.2 mmol/L (3.5-5.1); Sodium 130 mmol/L (136-145)
[2021-05-09] MEDS: Enoxaparin Sodium 40 MG/0.4 ML SYRINGE SC SCH (08:31)
[2021-05-09] MEDS: Polyethylene Glycol 3350 17 GM Packet PO SCH (08:37)
[2021-05-09 12:21] VITALS: BP 168/78; TEMP 98.8
== END 2021-05-09 14:49 | disposition home or self-care (01) | DRG 330 ==
LOC: ERS 03:55 → SDC 13:00 → UNDOADMIN 13:10 → SURG B 13:10 → UNDODISIN 17:30 → SURG B 17:35
PROVIDERS: ADMIT Surgery; ATTEND Surgery
PROC: 0DBH0ZZ Excision of Cecum, Open Approach (ICD-10-PCS; principal; 2021-05-04)
DX: K35.80 Unspecified acute appendicitis (principal); N17.9 Acute kidney failure, unspecified; K56.7 Ileus, unspecified; Z20.822 Contact with and (suspected) exposure to COVID-19; E03.9 Hypothyroidism, unspecified; E78.5 Hyperlipidemia, unspecified; N18.9 Chronic kidney disease, unspecified; I12.9 Hypertensive chronic kidney disease with stage 1 through stage 4 chronic kidney disease, or unspecified chronic kidney disease; Z88.5 Allergy status to narcotic agent; Z91.041 Radiographic dye allergy status; Z88.6 Allergy status to analgesic agent; Z79.890 Hormone replacement therapy; Z79.51 Long term (current) use of inhaled steroids; Z79.899 Other long term (current) drug therapy
CPT/HCPCS: 36415; 74022; 74176; 80048; 80053; 81003; 81015; 83605; 83690; 83735; 85025; 88304; 90715; 96365; 96375; 96376; J1170; J1650; J2001; J2270; J2405; J2543; J2704; J2765; J3010; J3480; J3490; J7050; S0020; S0028; U0002

== ENCOUNTER 2021-05-09 16:13 | Emergency (ER) | payer MEDICARE ==
[2021-05-09] MEDS ORDERED: Lidocaine 1% (PF) 30 ML VIAL ONE (18:14)
[2021-05-09] MEDS ORDERED: Lidocaine 1% w/Epinephrine 1:100K 20 ML VIAL FS SCH (18:30)
[2021-05-09] MEDS ORDERED: Boostrix 0.5 ML (Tdap) VIAL ONE (19:28)
== END 2021-05-09 19:40 | disposition home or self-care (01) ==
LOC: ERS 16:13
DX: S81.812A Laceration without foreign body, left lower leg, initial encounter (principal); I10 Essential (primary) hypertension; J45.909 Unspecified asthma, uncomplicated; E78.5 Hyperlipidemia, unspecified; Z79.52 Long term (current) use of systemic steroids; Z79.899 Other long term (current) drug therapy
CPT/HCPCS: 90715; J2001

== ENCOUNTER 2021-05-26 15:53 | Outpatient (CLI) | payer MEDICARE | END 2021-05-26 15:54 | disposition home or self-care (01) | LOC: ULT 15:53 | PROVIDERS: ATTEND Family Medicine | DX: R60.0 Localized edema (principal) ==

== ENCOUNTER 2022-02-15 10:45 | Outpatient (CLI) | payer MEDICARE ==
[2022-02-15 11:51] LABS: #Eosinphils 0.2 10x3/uL (0.0-0.5); #Monocytes 0.3 10x3/uL (0.0-1.1); #Neutrophils 4.2 10x3/uL (1.5-8.4); %Basophils 0.3 % (0.0-2.0); %Eosinophils 2.4 % (0.0-6.0); %Lymphocytes 33.1 % (18.0-47.0); %Monocytes 4.5 % (0.0-10.0); %Neutrophils 59.4 % (40.0-75.0); Hemoglobin 10.4 g/dL (12.0-15.5); Mean Corpuscular HGB CONC 31.2 g/dL (32.0-36.0); Mean Corpuscular Hemoglobin 26.3 pg (27.0-33.0); Mean Corpuscular Volume 84.3 fl (81.6-98.3); Mean Platelet Volume 9.8 fl (7.4-10.4); Platelet Count 273 10x3/uL (150-450); RBC Distribution Width 13.7 % (11.5-14.5); Red Blood Cell (RBC) Count 3.95 10x6/uL (3.90-5.03); White Blood Cell (WBC) Count 7.1 10x3/uL (3.5-10.5)
[2022-02-15 12:11] LABS: Anion Gap 15 mmol/L (10-20); BUN (Urea Nitrogen) 46 mg/dL (9.8-20.1); Calc. Creatinine Clearance 0 mL/min (70-130); Carbon Dioxide 22 mmol/L (23-31); Chloride 106 mmol/L (98-107); Estimated GFR 39; Glucose 130 mg/dL (83-110); Potassium 5.1 mmol/L (3.5-5.1); Sodium 138 mmol/L (136-145)
== END 2022-02-15 10:46 | disposition home or self-care (01) ==
LOC: LABBT 10:45
PROVIDERS: ATTEND Surgery
DX: Z01.812 Encounter for preprocedural laboratory examination (principal); Z20.822 Contact with and (suspected) exposure to COVID-19
CPT/HCPCS: 80048; 85025; 87811

== ENCOUNTER 2022-02-20 08:16 | Emergency (ER) | payer MEDICARE ==
[2022-02-20] MEDS ORDERED: diphenhydrAMINE 50 MG/ML VIAL ONE (08:58)
[2022-02-20 09:18] LABS: INR-International Normal Ratio 1.1; Prothrombin Time 14.3 sec (12.0-14.7)
[2022-02-20 09:19] LABS: PTT 28.5 sec (22.9-36.1)
[2022-02-20 09:20] LABS: #Eosinphils 0.1 thou/uL (0.0-0.7); #Lymphocytes 2.9 thou/uL (1.20-3.40); #Monocytes 0.7 thou/uL (0.11-0.59); #Neutrophils 5.1 thou/uL (1.40-6.50); %Basophils 0.3 % (0.0-1.0); %Eosinophils 1.7 % (0.0-10.0); %Lymphocytes 32.8 % (21.0-51.0); %Monocytes 7.3 % (0.0-10.0); %Neutrophils 57.9 % (42.0-75.0); Hemoglobin 10.6 g/dL (12.0-16.0); Mean Corpuscular Hemoglobin 26.2 pg (27.0-31.0); Mean Corpuscular Volume 84.5 fL (78.0-98.0); Mean Platelet Volume 7.6 fL (7.4-10.4); Platelet Count 217 thou/uL (130-400); RBC Distribution Width 13.1 % (11.5-14.5); Red Blood Cell (RBC) Count 4.05 mill/uL (4.20-5.40); White Blood Cell (WBC) Count 8.9 thou/uL (4.8-10.8)
[2022-02-20 09:21] LABS: ALT (SGPT) 27 U/L (8-55); AST (SGOT) 19 U/L (5-34); Albumin 3.8 g/dL (3.4-4.8); Alkaline Phosphatase 79 U/L (40-110); Anion Gap 13 mmol/L (10-20); BUN (Urea Nitrogen) 29 mg/dL (9.8-20.1); Bilirubin, Total 0.6 mg/dL (0.2-1.2); Calc. Creatinine Clearance 0 mL/min (70-130); Carbon Dioxide 21 mmol/L (23-31); Chloride 108 mmol/L (98-107); Estimated GFR 42; Globulin 3.1 g/dL (2.4-3.5); Glucose 119 mg/dL (83-110); Magnesium 1.8 mg/dL (1.6-2.6); Potassium 4.4 mmol/L (3.5-5.1); Protein, Total 6.9 g/dL (5.8-8.1); Sodium 138 mmol/L (136-145)
[2022-02-20] MEDS ORDERED: Metoprolol Tartrate 5 MG/5 ML VIAL ONE (09:54)
== END 2022-02-20 13:53 | disposition short-term general hospital (02) ==
LOC: ERS 08:16
DX: I48.91 Unspecified atrial fibrillation (principal); I10 Essential (primary) hypertension; E78.5 Hyperlipidemia, unspecified; Z79.899 Other long term (current) drug therapy
CPT/HCPCS: 36415; 71045; 80053; 83735; 83880; 84484; 85025; 85610; 85730; 93005; 96374; 96375; J1200